=== PATIENT | female | born 1940 | race African-American/Black ===

== ENCOUNTER 2016-07-23 15:29 | Inpatient (IN) ==
[2016-07-23] MEDS ORDERED: ONDANSETRON 4 MG/2 ML VIAL IV STA (17:01)
[2016-07-23] MEDS ORDERED: SODIUM CHLORIDE 0.9% 500 ML IV STA (17:01)
[2016-07-23] MEDS ORDERED: PANTOPRAZOLE 40 MG VIAL IV STA (17:01)
[2016-07-23] MEDS ORDERED: ALUM/MAG/SIMETH/LIDO VISC 1:1 30 ML BOTTLE PO STA (17:01)
[2016-07-23 17:24] LABS: Basophils # 0.1 10*3/uL (0.0-0.2); Basophils % 0.8 % (0.0-0.8); Eosinophils # 0.1 10*3/uL (0.0-0.87); Eosinophils % 1.6 % (0.00-10.9); Hematocrit 33.5 VOL% (35.7-47.0); Hemoglobin 11.4 GM/DL (12.0-16.0); Immature Granulocytes % 0.4 %; Immature Granulocytes Absolute 0.03 #; Lymphocytes # 2.5 10*3/uL (1.4-4.0); Lymphocytes % 33.7 % (21.3-54.2); Mean Corpuscular Hemoglobin 31 PG (27-34); Mean Corpuscular Volume 90.8 FL (87-102); Mean Platelet Volume 8.8 FL (9.6-12.0); Monocytes # 0.6 10*3/uL (0.11-0.8); Monocytes % 8.6 % (1.7-12.7); Neutrophils # 4.1 10*3/uL (1.4-7.4); Neutrophils % 54.9 % (38.7-73.9); Platelet Count 336 T/CUMM (130-400); Red Blood Count 3.69 MC/CUMM (3.8-5.5); Red Cell Distribution Width 11.8 % (9.3-17.3); White Blood Count 7.4 T/CUMM (4-12)
--- NOTE | 2016-07-23 17:28 | Emergency Department Note ---
Hermelindo Munguia Brittany, am scribing for, and in the presence of, Mumtaz Jay MD 17:06. Misty Munguia Charles R, MD, personally performed the services described in this documentation, ascribed by Sandra Casraez in my presence, and it is both accurate and complete 728 . Arrival - Arrival Chief Complaint: Abdominal / Flank Pain Stated Complaint: bad upper stomach pain ED Nursing Triage Note: Abd pain, difficulty breathing starting this morning. Pt states she was seen here in ER a couple nights ago but after taking the RX she has not felt good. Mode of Arrival: Ambulatory Limitations: No Limitations Source: Patient, Old Records Reviewed, RN Notes Reviewed Time Seen by Provider: 07/23/16 16:52 - History of Present Illness HPI Narrative: Patient is a 75 y/o black female presenting to the ED with c/o epigastric abdominal pain with an onset of a few days ago. Patient reports having some dsysphagia upon eating, and soon after has nausea, and vomits. She states, "feels like the food is stuck." Patient states that today she vomited x1 and yesterday she vomited x3. Patient reports that episodes always occur after eating. Patient denies any constipation. Patient was seen here in the ED on July 21, 2015 and was diagnosed with GERD. From patient's appearance and history of current symptoms, it appears that her dysphagia most likely is a result of an esophageal stricture. Patient has a past medical history significant for IDDM, Arthritis, and HTN. No other complaint/pain. Allergies/Adverse Reactions: Allergies Allergy/AdvReac Type Severity Reaction Status Date / Time No Known Allergies Allergy Verified 07/23/16 15:33 Home Medications: Home Medications Medication Instructions Recorded Confirmed Type Donepezil [Aricept] 10 mg PO BEDTIME 07/21/16 07/21/16 History Enalapril Maleate 5 mg PO DAILY 07/21/16 07/21/16 History Escitalopram Oxalate 20 mg PO DAILY 07/21/16 07/21/16 History Famotidine Tab [Pepcid Tab] 20 mg PO DAILY #20 tablet 07/21/16 Rx Fluticasone 110 Mcg Inhaler 2 puff INH BID 07/21/16 07/21/16 History [Flovent 110 mcg Inhaler] Methocarbamol Tab [Robaxin Tab] 750 mg PO TID PRN 07/21/16 07/21/16 History NIFEdipine XL TAB [Procardia Xl] 60 mg PO DAILY 07/21/16 07/21/16 History Simvastatin [Zocor] 20 mg PO QPM 07/21/16 07/21/16 History glyBURIDE [Glyburide] 5 mg PO AC BREAKFAST 07/21/16 07/21/16 History hydroCHLOROthiazide 25 mg PO DAILY 07/21/16 07/21/16 History [Hydrochlorothiazide] metFORMIN [Glucophage] 1,000 mg PO BID 07/21/16 07/21/16 History Review of System - Review of System 12 point system: reviewed and no additional remarkable complaints except as stated - Review of System Constitutional: Present: other (dysphagia) Gastrointestinal: Present: abdominal pain, nausea, vomiting Medical,Surgical,& Family Hx - Medical History Cardio: History of: Hypertension Endocrine: History of: Diabetes Mellitus (NIDDM), Dyslipidemia - Surgical History Reproductive Surgeries: Surgical HX of;: Hysterectomy - Social History Smoking Status: Never smoker Frequency of Alcohol Use: None Type of Drug Use: None Exam Vital Signs: Vital Signs Temperature 98.9 F 07/23/16 15:33 Pulse Rate 63 07/23/16 18:45 Respiratory Rate 20 07/23/16 18:45 Blood Pressure 127/72 07/23/16 18:45 O2 Sat by Pulse Oximetry 100 07/23/16 18:45 - General General appearance: alert, in no apparent distress - Head Head exam: Present: atraumatic, normocephalic - Eye Eye exam: Present: normal appearance, PERRL, EOMI - ENT ENT exam: Present: normal oropharynx, mucous membranes moist, TM's normal bilaterally - Neck Neck exam: Present: normal inspection, full ROM, trachea midline - Chest Chest inspection: Present: normal inspection, symmetric chest wall rise - Respiratory Respiratory exam: Present: normal lung sounds bilaterally. Absent: rales, rhonchi, wheezes - Cardiovascular Cardiovascular exam: Present: regular rate, normal rhythm, normal heart sounds. Absent: murmur, rubs, gallop - Abdominal Exam Abdominal exam: Present: soft, tenderness (RUQ), normal bowel sounds. Absent: distention, guarding, rebound, Gee's sign - Extremities Exam Extremities exam: Present: normal inspection, full ROM - Back Exam Back exam: Present: normal inspection, full ROM - Neurological Exam Neurological exam: Present: alert, oriented X3, CN II-XII intact. Absent: motor sensory deficit - Psychiatric Psychiatric exam: Present: normal affect, normal mood - Skin Skin exam: Present: warm, dry Course - Consultations Consultation #1: Dr. Starr will admit patient Time: 19:14 Results - Labs CBC & BMP: 07/23/16 17:19 07/23/16 17:19 Lab Results: I have reviewed the patients labs Labs: Laboratory Tests 07/23/16 17:19 WBC 7.4 RBC 3.69 L Hgb 11.4 L Hct 33.5 L MCV 90.8 MCH 31 MCHC 34.0 RDW 11.8 Plt Count 336 MPV 8.8 L Neut % (Auto) 54.9 Lymph % (Auto) 33.7 Nolan % (Auto) 8.6 Eos % (Auto) 1.6 Baso % (Auto) 0.8 Neut # (Auto) 4.1 Lymph # (Auto) 2.5 Nolan # (Auto) 0.6 Eos # (Auto) 0.1 Baso # (Auto) 0.1 Immature Gran % 0.4 Nucleated RBC % 0.0 Immature Gran # 0.03 Nucleated RBCs # 0.00 Laboratory Tests 07/23/16 07/23/16 17:19 17:19 Sodium 137 Potassium 3.1 L Chloride 101 Carbon Dioxide 23 Anion Gap 16.1 H BUN 14 Creatinine 1.50 H GFR Calculation 38 BUN/Creatinine Ratio 9.00 Glucose 73 L Calculated Osmolality 272.8 L Calcium 9.1 Magnesium 2.2 Total Bilirubin < 0.39 AST 20 ALT 22 Alkaline Phosphatase 59 Troponin I < 0.015 Total Protein 7.7 Albumin 3.5 Globulin 4.2 H Albumin/Globulin Ratio 0.8 L Amylase 230 H Lipase 2564.0 H Urine Color Straw Urine Appearance Clear Urine pH 9.0 H Ur Specific [place] 1.003 Urine Protein Negative Urine Glucose (UA) Negative Urine Ketones Negative Urine Blood Negative Urine Nitrate Negative Urine Bilirubin Negative Urine Urobilinogen < 2.0 H Urine Leukocytes Negative Urine RBC 1 Urine WBC <1 Ur Squamous Epith Cells Occasional - Diagnostic Findings Procedure: Ultrasound: report reviewed by me (gallbladder: 3 mm gallbladder polyp versus adherent stone. No sonographic findings of acute cholecystitis. Follow-up gallbladder ultrasound could be obtained in 6 months to ensure stability. No other acute abnormality within the right upper quadrant. ) Disposition Clinical Impression: GERD (gastroesophageal reflux disease), Abdominal pain, Colic, biliary, Pancreatitis Case discussed with: patient, patient's family Disposition: Still a Patient Condition: Stable Time of Disposition: 19:23
[2016-07-23] MEDS ORDERED: ALUM/MAG/SIMETH/LIDO VISC 1:1 30 ML BOTTLE PO ONE (17:34)
[2016-07-23] MEDS ORDERED: ONDANSETRON 4 MG/2 ML VIAL ONE (17:34)
[2016-07-23] MEDS ORDERED: PANTOPRAZOLE 40 MG VIAL IV ONE (17:34)
[2016-07-23 17:43] LABS: Apearance,Urine CLEAR (Clear); Bilirubin,Urine Negative (Negative); Blood, Urine Negative (Negative); Glucose,Urine (UA) Negative (Negative); Ketones,Urine Negative (Negative); Nitrite,Urine Negative (Negative); Protein,Urine Negative; RBC,Urine 1 /HPF (0-4); Squamous Epithelial Cell,Urine Occasional /HPF (0-10); Urine Color Straw (Yellow); Urine Specific Gravity 1.003 (1.001-1.035); Urine Urobilinogen < 2.0 EU/DL (0.2-1.0); WBC,Urine <1 /HPF (0-6)
[2016-07-23 17:53] LABS: Alanine Aminotransferase 22 U/L (13-56); Albumin 3.5 G/DL (3.4-5.0); Alkaline Phosphatase 59 U/L (45-117); Amylase 230 U/L (25-115); Aspartate Amino Transferase 20 U/L (0-37); Bilirubin,Total < 0.39 MG/DL (0.2-1.0); Blood Urea Nitrogen 14 MG/DL (7-18); Calcium 9.1 MG/DL (8.5-10.1); Glucose 73 MG/DL (74-106); Magnesium 2.2 MG/DL (1.8-2.4); Osmolality,Calculated 272.8 MOS/KG (273-304); Potassium 3.1 MMOL/L (3.5-5.1); Sodium 137 MMOL/L (136-145); Total Protein 7.7 G/DL (6.4-8.3); Troponin I Only < 0.015 NG/ML (0.00-0.045)
--- NOTE | 2016-07-23 17:58 | EKG Report ---
Stationary ECG Study [facility] ER Test Date: 07/23/2016 5:56:52 PM Pat Name: TORRES BOOTH Department: Room: Gender: F Telemarketing Representative: MORALES : 1940 Requested by: Mumtaz Snadra Order Number: [id number] Reading MD: SHAZIA MCARTHUR Intervals [place] Rate: 67 P: 55 SC: 146 QRS: -37 QRSD: 94 T: 60 QT: 400 QTc: 415 Interpretive Statements SINUS RHYTHM MARKED LEFT AXIS DEVIATION MODERATE T-WAVE ABNORMALITY, CONSIDER ANTERIOR ISCHEMIA Electronically Signed On 07-23-16 23:30:13 SWAHILI TEACHER by SHAZIA MCARTHUR [email or web address]
--- NOTE | 2016-07-23 18:45 | Ultrasound Report ---
US gallbladder Indication: Right upper quadrant abdominal pain. Comparison: None available. Technique: Multiple longitudinal and transverse real-time sonographic images of the right upper quadrant of the abdomen are obtained. Findings: The liver measures 16 cm cm and demonstrates normal echogenicity without focal abnormality. The gallbladder is normal in size. There is a single punctate echogenic nodule within the gallbladder which is nonmobile and may represent adherent stone or polyp. There is no pericholecystic fluid or wall thickening. The sonographic Gee's sign is negative. The common duct measures 0.3 cm in diameter and there is no evidence of intrahepatic ductal dilation. Visualized portion the pancreas appears normal. Right kidney measures 8.9 x 3.8 x 3.1 cm with no hydronephrosis or perinephric collection visualized IMPRESSION: 3 mm gallbladder polyp versus adherent stone. No sonographic findings of acute cholecystitis. Follow-up gallbladder ultrasound could be obtained in 6 months to ensure stability. No other acute abnormality within the right upper quadrant. Ultrasound images were captured and stored. PROCEDURE INTERPRETED AT [facility] DEPARTMENT OF RADIOLOGY Final Report Signed by: Arthur Andrade
[2016-07-23] MEDS ORDERED: POTASSIUM CHLORIDE 20 MEQ TABLET PO STA (19:12)
--- NOTE | 2016-07-23 19:18 | XRay Report ---
Exam: XR chest 1V portable Indication: Abdominal pain Comparison study: 07/21/2016 Findings: The heart, mediastinum and bony structures are stable from prior. There is no focal consolidation, pneumothorax or pleural effusion identified. Impression: No acute cardiopulmonary process. No significant change from prior. PROCEDURE INTERPRETED AT [facility] DEPARTMENT OF RADIOLOGY Final Report Signed by: Arthur Andrade
--- NOTE | 2016-07-23 19:19 | XRay Report ---
XR abdomen 2V Clinical Information: Abdominal Pain Comparison: None Findings: Bowel gas pattern is nonspecific and within normal limits. No abnormally dilated small bowel loops are identified to suggest obstruction. There is no free air identified. Scattered fecal material is noted throughout colon, which is otherwise nondilated. No abnormal focal soft tissue masses or calcific densities are identified in the abdomen or pelvis. Lung bases appear predominantly clear. There is no acute osseous abnormality. No suspicious osseous lesions are identified. Impression: No acute radiographic abnormality in the abdomen. A mild-moderate degree of fecal stasis/constipation is suspected. PROCEDURE INTERPRETED AT [facility] DEPARTMENT OF RADIOLOGY Final Report Signed by: Arthur Andrade
[2016-07-23] MEDS ORDERED: POTASSIUM CHLORIDE 20 MEQ TABLET PO ONE (19:24)
[2016-07-23] MEDS ORDERED: DEXTROSE 50% 25 GM/50 ML VIAL IV PRN (21:40)
[2016-07-23] MEDS ORDERED: ACETAMINOPHEN 325 MG TABLET PO PRN (21:40)
[2016-07-23] MEDS ORDERED: HYDROmorphone 2 MG/1 ML VIAL IV PRN (21:40)
[2016-07-23] MEDS ORDERED: ONDANSETRON 4 MG/2 ML VIAL IV PRN (21:40)
[2016-07-23] MEDS ORDERED: GLUCAGON 1 MG VIAL IM PRN (21:40)
[2016-07-23] MEDS: SODIUM CHLORIDE 0.9% 1,000 ML IV SCH (22:25)
[2016-07-23] MEDS: INSULIN REGULAR 100 UNIT/ML SUBCUT SCH (22:42)
[2016-07-24] MEDS ORDERED: METHOCARBAMOL 750 MG TABLET PO PRN (07:24)
[2016-07-24 07:54] LABS: Basophils % 0.8 % (0.0-0.8); Eosinophils # 0.2 10*3/uL (0.0-0.87); Eosinophils % 3.2 % (0.00-10.9); Hematocrit 31.9 VOL% (35.7-47.0); Hemoglobin 10.5 GM/DL (12.0-16.0); Immature Granulocytes % 0.4 %; Immature Granulocytes Absolute 0.02 #; Lymphocytes # 1.8 10*3/uL (1.4-4.0); Lymphocytes % 33.3 % (21.3-54.2); Mean Corpuscular HGB Conc 32.9 GM/DL (32-36); Mean Corpuscular Hemoglobin 31 PG (27-34); Mean Corpuscular Volume 93.3 FL (87-102); Mean Platelet Volume 8.7 FL (9.6-12.0); Monocytes # 0.4 10*3/uL (0.11-0.8); Monocytes % 8.3 % (1.7-12.7); Neutrophils # 2.9 10*3/uL (1.4-7.4); Platelet Count 295 T/CUMM (130-400); Red Blood Count 3.42 MC/CUMM (3.8-5.5); Red Cell Distribution Width 11.9 % (9.3-17.3); White Blood Count 5.3 T/CUMM (4-12)
[2016-07-24 08:28] LABS: Alanine Aminotransferase 18 U/L (13-56); Albumin 3.1 G/DL (3.4-5.0); Alkaline Phosphatase 55 U/L (45-117); Amylase 112 U/L (25-115); Aspartate Amino Transferase 16 U/L (0-37); Bilirubin,Total < 0.39 MG/DL (0.2-1.0); Blood Urea Nitrogen 13 MG/DL (7-18); Calcium 8.7 MG/DL (8.5-10.1); Glucose 121 MG/DL (74-106); Magnesium 2.2 MG/DL (1.8-2.4); Potassium 4.3 MMOL/L (3.5-5.1); Sodium 143 MMOL/L (136-145); Total Protein 6.6 G/DL (6.4-8.3)
[2016-07-24] MEDS: INSULIN REGULAR 100 UNIT/ML SUBCUT SCH ×4 (08:40→23:07)
[2016-07-24] MEDS: FLUTICASONE 110 MCG/PUFF INHALER 12 GM INH SCH ×2 (09:51→23:30)
[2016-07-24] MEDS: PANTOPRAZOLE 40 MG VIAL IV SCH (09:51)
[2016-07-24] MEDS: ESCITALOPRAM 10 MG TABLET PO SCH (09:51)
[2016-07-24] MEDS: hydroCHLOROthiazide 25 MG TABLET PO SCH (09:52)
[2016-07-24] MEDS: FAMOTIDINE 20 MG TABLET PO SCH (09:56)
[2016-07-24] MEDS: ENALAPRIL 10 MG TABLET PO SCH (09:56)
[2016-07-24] MEDS ORDERED: PROPOFOL 500 MG/50 ML BOTTLE IV ONE (12:09)
[2016-07-24] MEDS ORDERED: LIDOCAINE 2% 5 ML VIAL ONE (12:09)
[2016-07-24] MEDS ORDERED: ROCURONIUM 100 MG/10 ML VIAL IV ONE (12:09)
[2016-07-24] MEDS ORDERED: ONDANSETRON 4 MG/2 ML VIAL ONE (12:09)
[2016-07-24] MEDS ORDERED: PHENYLEPHRINE 1 MG/10 ML SYRINGE IV ONE (12:09)
[2016-07-24] MEDS ORDERED: PROPOFOL 200 MG/20 ML VIAL IV ONE (12:09)
[2016-07-24] MEDS ORDERED: LIDOCAINE 1%/EPI INJ 20 ML VIAL ONE (14:21)
[2016-07-24] MEDS ORDERED: TISSUE ADHESIVE 1 EACH APPLICATOR TOP ONE ×2 (15:17→18:45)
--- NOTE | 2016-07-24 16:58 | General Surg History&Physical ---
Assessment and Plan (1) Pancreatitis Status: Acute Assessment and plan: This patient appears to have biliary pancreatitis. Her pain is significantly better this morning when I saw her and her lipase trended down to almost normal. I recommended laparoscopic cholecystectomy with intraoperative cholangiogram for biliary pancreatitis to the patient. I have discussed the risks, benefits, and alternatives of the operation with the patient, and the expected outcomes have been reviewed. We will proceed with operation. Current Visit: Yes History of Present Illness Chief complaint: Abdominal pain History of present illness: Ms. Dasilva is a 75 year old female who is admitted to my service through the ER for abdominal pain with elevated lipase and stones on ultrasound of the gallbladder. This note reflects an encounter I had with the patient at 0530 on 07/24/2016. Patient reports several day history of worsening abdominal pain with postprandial nausea and vomiting and pain radiating through to the back. She was worked up in the ER and found to have a lipase of over 2000 and a gallbladder ultrasound showed stones in the gallbladder with no biliary ductal dilation. Home Medications Medication Instructions Recorded Confirmed Type Donepezil [Aricept] 10 mg PO BEDTIME 07/21/16 07/24/16 History Enalapril Maleate 5 mg PO DAILY 07/21/16 07/24/16 History Escitalopram Oxalate 20 mg PO DAILY 07/21/16 07/24/16 History Famotidine Tab [Pepcid Tab] 20 mg PO DAILY #20 tablet 07/21/16 07/24/16 Rx Fluticasone 110 Mcg Inhaler 2 puff INH BID 07/21/16 07/24/16 History [Flovent 110 mcg Inhaler] Methocarbamol Tab [Robaxin Tab] 750 mg PO TID PRN 07/21/16 07/24/16 History NIFEdipine XL TAB [Procardia Xl] 60 mg PO DAILY 07/21/16 07/24/16 History Simvastatin [Zocor] 20 mg PO QPM 07/21/16 07/24/16 History glyBURIDE [Glyburide] 5 mg PO AC BREAKFAST 07/21/16 07/24/16 History hydroCHLOROthiazide 25 mg PO DAILY 07/21/16 07/24/16 History [Hydrochlorothiazide] metFORMIN [Glucophage] 1,000 mg PO BID 07/21/16 07/24/16 History Allergies Allergy/AdvReac Type Severity Reaction Status Date / Time No Known Allergies Allergy Verified 07/23/16 15:33 Medical,Surgical,& Family Hx - Medical History Cardio: History of: Hypertension Neurology: History of: Dementia Endocrine: History of: Diabetes Mellitus (NIDDM), Dyslipidemia Gastrointestinal: History of: GI Problems (abd pain) Musculoskeletal: History of: Musculoskeletal Problems (arthritis) No history of: Amputation - Surgical History Cardiac Surgeries: Patient Denies: Cardiac Catheterization Thoracic Surgeries: Patient denies;: Lobectomy Neurologic Surgeries: Patient denies: Neurologic Surgery Abdominal Surgeries: Patient denies: Abdominal Surgery Reproductive Surgeries: Surgical HX of;: Gynecologic Surgery, Hysterectomy - Family History Family History: Reports;: Family Cancer (mom breast cancer dad colon cancer) - Social History Smoking Status: Never smoker Frequency of Alcohol Use: None Type of Drug Use: None Exam - Constitutional Vitals: Period Temp Pulse Resp BP Sys/Cortez Pulse Ox Last 24 Hr 98.1 F-98.6 F 61-79 18-27 99-149/44-65 97-100 General appearance: normal weight, no acute distress - Head Head exam: Present: normal inspection, normocephalic - Eye Eye exam: Present: EOMI Pupils: Present: KELLY - ENT ENT exam: Present: normal exam Mouth exam: Present: normal external inspection, normal voice - Neck Neck exam: Present: normal inspection, trachea midline - Respiratory Respiratory exam: Present: clear to auscultation bilaterally. Absent: accessory muscle use, chest wall tenderness - Cardiovascular Cardiovascular exam: Present: RRR. Absent: systolic murmur, tachycardia - GI/Abdominal GI/Abdominal exam: Present: normal bowel sounds, tenderness (The patient has right upper quadrant and midepigastric tenderness on exam), soft. Absent: distended, Gee's sign - Extremities Exam Extremities exam: Present: normal inspection, normal capillary refill - Neurological Exam Neurological exam: Present: alert, oriented X3 Speech: Present: normal - Skin Skin exam: Present: normal color, warm - Constitutional Constitutional: Present: as per HPI - EENT Nose, mouth and throat: Present: as per HPI - Cardiovascular Cardiovascular: Present: as per HPI - Respiratory Respiratory: Present: as per HPI - Gastrointestinal Gastrointestinal: Present: as per HPI - Genitourinary Genitourinary: Present: as per HPI - Musculoskeletal Musculoskeletal: Present: as per HPI - Neurological Neurological: Present: as per HPI - Endocrine Endocrine: Present: as per HPI Hematologic/Lymphatic: Present: as per HPI Results - Labs CBC & BMP: 07/24/16 07:42 07/24/16 07:42
[2016-07-24] MEDS ORDERED: ONDANSETRON 4 MG/2 ML VIAL IV PRN (17:20)
[2016-07-24] MEDS ORDERED: HYDROmorphone 2 MG/1 ML VIAL IV PRN (17:20)
--- NOTE | 2016-07-24 18:41 | Fluoroscopy Report ---
Referring Physician: Sanjay Starr Exam: [place] cholangiogram in surgery Date: July 24, 2016 Reason: Gallstones Comparison: Gallbladder ultrasound July 23, 2016 Findings: Fluoroscopic images of the abdomen were provided after performance of an intraoperative cholangiogram. Fluoroscopy time was 58 seconds. The obtained images demonstrate normal caliber intrahepatic and extrahepatic bile ducts. There is a small filling defect within the common bile duct which could represent an air bubble or small stone. Please correlate with surgical findings. Impression: There is a small filling defect within the common bile duct which could represent a small air bubble or stone. Please correlate with surgical findings. PROCEDURE INTERPRETED AT [facility] DEPARTMENT OF RADIOLOGY Final Report Signed by: Dr. Catarina Malave
--- NOTE | 2016-07-24 18:55 | Operative Note ---
Date of procedure: 07/24/16 Pre-op diagnosis: Biliary pancreatitis Post-op diagnosis: same Procedure: Preoperative diagnosis Biliary pancreatitis Postoperative diagnosis Same Procedures performed 1. Laparoscopic cholecystectomy with intraoperative cholangiogram 2. Laparoscopic lysis of adhesions 22 modifier Findings Acute and chronic cholecystitis was seen. The critical view of safety was obtained prior to placing clips on the cystic duct and cystic artery. Intraoperative cholangiogram revealed no filling defects and normal biliary anatomy with cystic duct cannulation. Extensive intra-abdominal adhesions required full laparoscopic lysis of adhesions and due to this the case took more than twice the usual length of time. Complications None apparent Specimen Gallbladder Anesthesia GETA Blood loss 5 mL Indications This patient was admitted to the hospital with biliary pancreatitis. Her pancreatitis resolved and I recommended taking her to the operating room for a laparoscopic cholecystectomy with a selective cholangiogram. The risks, benefits, and alternatives of the operation were discussed with the patient in detail, and the expected outcomes were reviewed. In particular, the risk of bowel injury, liver injury, bile duct leak and bile duct injury, as well as pancreatitis and retained or drop stones were discussed in detail. All the patient's questions were answered. She like to proceed with the operation. Description of procedure The patient was taken to the operating room and transferred to the operating table in the supine position. Pressure points were padded and SCDs were placed to bilateral lower extremities. General endotracheal anesthesia was administered. The abdomen was prepped chlorhexidine and draped sterilely. Preoperative antibiotics were administered, a timeout was performed. The abdomen was entered in a supraumbilical location of the Veress needle. The skin incision was made in the supraumbilical location with a 11 blade scalpel after local anesthetic was administered. Umbilical stalk was grasped with a penetrating towel clip. A Veress needle was used to enter the peritoneal cavity confirmed by double click technique. Aspiration was negative. Saline drop test confirmed intraperitoneal location. The abdomen was insufflated to 15 mmHg with an initial insufflation pressure of 1 mmHg. The Veress needle was removed and a 5 mm trocar was placed blindly. The towel clip was removed. Diagnostic laparoscopy was performed. There were extensive adhesions in this location and I could not see safely to place additional trochars. The CO2 was used to insufflate the abdomen was left in place and a mid epigastric 11 mm trocar was placed. This demonstrated no obvious evidence of trocar injury but there were adhesions between the omentum and the midline incision. Under direct visualization, 2 additional right subcostal trochars were placed and lysis of adhesions was performed. Once the lysis of adhesions was completed, it was evident that there is no evidence of Veress needle or trocar injury. The patient was placed in reverse Trendelenburg and left side rolled down position. The gallbladder was grasped at the fundus and infundibulum. The cystic plate peritoneum was dissected into the critical view of safety was obtained. The cystic duct was clipped and the cystic artery was clipped twice initially and once laterally and divided. Cystic ductotomy was then made a cholangiogram was performed revealing brisk flow into the duodenum with no filling defects and good visualization about the biliary system and the pancreatic duct. Cystic duct remnant cannulation was confirmed. The cholangiogram catheter was then removed and the cystic duct was clipped twice centrally. Laparoscopic scissors were used to complete the transection of the cystic duct at the cystic ductotomy site. The gallbladder was removed from the gallbladder fossa using hook electrocautery. The gallbladder was placed in a Endo Catch retrieval bag through the 11 mm trocar and removed through the trocar with no significant fascial extension of the incision. The gallbladder fossa was suction irrigated until the effluent was clear. The CO2 was released from the abdomen and the trochars were removed. The skin incisions were closed with 4-0 Monocryl subcuticular suture and sterile skin glue. The patient was awakened from anesthesia and transferred to recovery. Postoperative plan Monitor drain output and advance diet as tolerated Anesthesia: FAUSTINO local Surgeon / Physician: Sanjay Starr Estimated blood loss: minimal Specimens: other (gallbladder) Condition: stable Disposition: PACU Results - Labs CBC & BMP: 07/24/16 07:42 07/24/16 07:42 Discharge Plan - Discharge Medications No Action glyBURIDE [Glyburide] 5 mg PO AC BREAKFAST Simvastatin [Zocor] 20 mg PO QPM metFORMIN [Glucophage] 1,000 mg PO BID Escitalopram Oxalate 20 mg PO DAILY Donepezil [Aricept] 10 mg PO BEDTIME Methocarbamol Tab [Robaxin Tab] 750 mg PO TID PRN PRN Reason: Spasms Enalapril Maleate 5 mg PO DAILY Famotidine Tab [Pepcid Tab] 20 mg PO DAILY #20 tablet NIFEdipine XL TAB [Procardia Xl] 60 mg PO DAILY hydroCHLOROthiazide [Hydrochlorothiazide] 25 mg PO DAILY Fluticasone 110 Mcg Inhaler [Flovent 110 mcg Inhaler] 2 puff INH BID - Follow Up or Referral - Forms/Instructions
--- NOTE | 2016-07-24 19:04 | Anesthesia ---
Anesthesia Post OP - Post Ansesthetic Evaluation Patient seen in post op: Yes Resp: within normal limits CV: within normal limits Mental: within normal limits Temp: within normal limits [id number]-Bg-[id number]: within normal limits Nausea and Vomiting: within normal limits Pain: within normal limits
[2016-07-24] MEDS ORDERED: fentaNYL 100 MCG/2 ML VIAL ONE (19:07)
[2016-07-24] MEDS ORDERED: ePHEDrine 50 MG/ML AMP ONE (19:07)
[2016-07-24] MEDS ORDERED: SEVOFLURANE 1 UNIT/15 MINUTE INH ONE (19:08)
[2016-07-24] MEDS: DONEPEZIL 10 MG TABLET PO SCH (20:58)
[2016-07-24] MEDS: SIMVASTATIN 20 MG TABLET PO SCH (20:58)
[2016-07-24] MEDS: SODIUM CHLORIDE 0.9% 1,000 ML IV SCH (21:00)
[2016-07-25 04:28] LABS: Basophils % 0.3 % (0.0-0.8); Eosinophils % 0.1 % (0.00-10.9); Hematocrit 29.2 VOL% (35.7-47.0); Hemoglobin 9.4 GM/DL (12.0-16.0); Immature Granulocytes % 0.5 %; Immature Granulocytes Absolute 0.04 #; Lymphocytes # 0.9 10*3/uL (1.4-4.0); Lymphocytes % 11.8 % (21.3-54.2); Mean Corpuscular HGB Conc 32.2 GM/DL (32-36); Mean Corpuscular Hemoglobin 31 PG (27-34); Mean Corpuscular Volume 94.8 FL (87-102); Mean Platelet Volume 9.6 FL (9.6-12.0); Monocytes # 0.4 10*3/uL (0.11-0.8); Monocytes % 5.7 % (1.7-12.7); Neutrophils # 6.2 10*3/uL (1.4-7.4); Neutrophils % 81.6 % (38.7-73.9); Platelet Count 258 T/CUMM (130-400); Red Blood Count 3.08 MC/CUMM (3.8-5.5); White Blood Count 7.6 T/CUMM (4-12)
[2016-07-25 05:02] LABS: Albumin 2.7 G/DL (3.4-5.0); Bilirubin,Total 0.8 MG/DL (0.2-1.0); Osmolality,Calculated 285.1 MOS/KG (273-304); Potassium 4.1 MMOL/L (3.5-5.1); Total Protein 6.3 G/DL (6.4-8.3)
--- NOTE | 2016-07-25 08:54 | Discharge Summary ---
Hospital Course - Hospital Course Hospital Course: This patient was admitted with biliary pancreatitis. Her pancreatitis resolved and she was taken to the operating room for laparoscopic cholecystectomy. Intraoperative cholangiogram was negative. She did have extensive intra- abdominal adhesions and adhesiolysis was performed. She tolerated the procedure well and was feeling well the next day. She was normal vital signs and want to go home and tolerated her diet. Pain is well controlled. She was discharged home with follow-up in clinic in 2 weeks. Diagnosis - Discharge Diagnosis (1) Pancreatitis Status: Acute Discharge Plan - Discharge Data Disposition: Disch To Home/Self Care Condition at Discharge: Stable Discharge Diet: advance to your usual diet Activity: no lifting Hygiene: may shower Weight Bearing at Discharge: full weight bearing Driving: not until seen by doctor Contact your physician if you experience:: fever over 101, Difficulty voiding, Redness or swelling, Nausea/Vomiting, Shortness of breath, Bleeding, pain uncontrolled by pain medications - Discharge Medications New HYDROcodone/ACETAMIN 7.5-325 [[place] 7.5-325] 1 tablet PO Q4H PRN #45 tablet PRN Reason: Pain Moderate (4-7) Continue glyBURIDE [Glyburide] 5 mg PO AC BREAKFAST Simvastatin [Zocor] 20 mg PO QPM metFORMIN [Glucophage] 1,000 mg PO BID Escitalopram Oxalate 20 mg PO DAILY Donepezil [Aricept] 10 mg PO BEDTIME Methocarbamol Tab [Robaxin Tab] 750 mg PO TID PRN PRN Reason: Spasms Enalapril Maleate 5 mg PO DAILY Famotidine Tab [Pepcid Tab] 20 mg PO DAILY #20 tablet NIFEdipine XL TAB [Procardia Xl] 60 mg PO DAILY hydroCHLOROthiazide [Hydrochlorothiazide] 25 mg PO DAILY Fluticasone 110 Mcg Inhaler [Flovent 110 mcg Inhaler] 2 puff INH BID - Follow Up or Referral Follow Up: Sanjay Starr MD [Physician] - 2 Weeks - Forms/Instructions Exam - Constitutional Vitals: Period Temp Pulse Resp BP Sys/[place] Pulse Ox Last 24 Hr 97.5 F-98.7 F 65-108 12-24 100-125/47-94 94-100 General appearance: normal weight, no acute distress - Head Head exam: Present: normal inspection, normocephalic - Eye Eye exam: Present: EOMI Pupils: Present: KELLY - ENT ENT exam: Present: normal exam - Neck Neck exam: Present: normal inspection - Respiratory Respiratory exam: Present: clear to auscultation bilaterally. Absent: accessory muscle use, chest wall tenderness - Cardiovascular Cardiovascular exam: Present: regular rate and rhythm. Absent: systolic murmur , tachycardia - GI/Abdominal GI/Abdominal exam: Present: normal bowel sounds, soft, other (incisions clean/ dry/intact). Absent: tenderness, rebound - Extremities Exam Extremities exam: Present: normal inspection, normal capillary refill - Back Exam Back exam: Present: normal inspection - Neurological Exam Neurological exam: Present: alert, oriented X3 - Psychiatric Psychiatric exam: Present: normal affect, normal mood - Skin Skin exam: Present: normal color, warm Discharge Results Labs on day of discharge: Labs from last 24 hours 07/25/16 07/25/16 07/25/16 07:22 03:46 03:46 WBC 7.6 D RBC 3.08 L Hgb 9.4 L Hct 29.2 L MCV 94.8 MCH 31 MCHC 32.2 RDW 12.0 Plt Count 258 MPV 9.6 Neut % (Auto) 81.6 H Lymph % (Auto) 11.8 L [place] % (Auto) 5.7 Eos % (Auto) 0.1 Baso % (Auto) 0.3 Neut # (Auto) 6.2 Lymph # (Auto) 0.9 L [place] # (Auto) 0.4 Eos # (Auto) 0.0 Baso # (Auto) 0.0 Immature Gran % 0.5 Nucleated RBC % 0.0 Immature Gran # 0.04 Nucleated RBCs # 0.00 Sodium 142 Potassium 4.1 Chloride 112 H Carbon Dioxide 19 L Anion Gap 15.1 H BUN 12 Creatinine 1.40 H GFR Calculation 40 BUN/Creatinine Ratio 8.00 Glucose 160 H POC Glucose 165 H Calculated Osmolality 285.1 Calcium 8.0 L Total Bilirubin 0.80 AST 41 H ALT 30 Alkaline Phosphatase 49 Total Protein 6.3 L Albumin 2.7 L Globulin 3.6 H Albumin/Globulin Ratio 0.7 L Lipase 178.0 D 07/24/16 07/24/16 07/24/16 19:54 15:23 11:00 WBC RBC Hgb Hct MCV MCH MCHC RDW Plt Count MPV Neut % (Auto) Lymph % (Auto) [place] % (Auto) Eos % (Auto) Baso % (Auto) Neut # (Auto) Lymph # (Auto) [place] # (Auto) Eos # (Auto) Baso # (Auto) Immature Gran % Nucleated RBC % Immature Gran # Nucleated RBCs # Sodium Potassium Chloride Carbon Dioxide Anion Gap BUN Creatinine GFR Calculation BUN/Creatinine Ratio Glucose POC Glucose 132 H 80 110 H Calculated Osmolality Calcium Total Bilirubin AST ALT Alkaline Phosphatase Total Protein Albumin Globulin Albumin/Globulin Ratio Lipase DS: Provider Date of admission: 07/23/16 19:24 Primary care physician: . No PCP Attending physician on admission: Sanjay Starr MD Consults: 07/23/16 21:55 Consult to Pharmacy [CONS] Routine Reason for Pharmacy Consult: Adjust Meds Renal Funct 07/23/16 22:11 Consult to Pastoral Services [CONS] Routine Comment: Pastoral Screen: Request Damage Inside Adjuster Visit Pastoral Screen Source of Request: Patient Discharging clinician: Sanjay Starr MD Expected date of discharge: 07/25/16
--- NOTE | 2016-07-25 10:06 | EKG Report ---
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
[2016-07-25] MEDS ORDERED: LACTATED RINGERS 1,000 ML IV ONE (10:07)
[2016-07-25 10:20] LABS: Basophils % 0.3 % (0.0-0.8); Eosinophils % 0.3 % (0.00-10.9); Hematocrit 25.6 VOL% (35.7-47.0); Hemoglobin 8.5 GM/DL (12.0-16.0); Immature Granulocytes % 0.4 %; Immature Granulocytes Absolute 0.03 #; Lymphocytes # 1.5 10*3/uL (1.4-4.0); Lymphocytes % 19.8 % (21.3-54.2); Mean Corpuscular HGB Conc 33.2 GM/DL (32-36); Mean Corpuscular Hemoglobin 31 PG (27-34); Mean Corpuscular Volume 94.1 FL (87-102); Mean Platelet Volume 8.9 FL (9.6-12.0); Monocytes # 0.6 10*3/uL (0.11-0.8); Monocytes % 7.7 % (1.7-12.7); Neutrophils # 5.2 10*3/uL (1.4-7.4); Neutrophils % 71.5 % (38.7-73.9); Platelet Count 253 T/CUMM (130-400); Red Blood Count 2.72 MC/CUMM (3.8-5.5); Red Cell Distribution Width 12.2 % (9.3-17.3); White Blood Count 7.3 T/CUMM (4-12)
[2016-07-25 10:46] LABS: Albumin 2.5 G/DL (3.4-5.0); Bilirubin,Total 0.5 MG/DL (0.2-1.0); Calcium 7.2 MG/DL (8.5-10.1); Osmolality,Calculated 296.3 MOS/KG (273-304); Potassium 3.7 MMOL/L (3.5-5.1); Total Protein 5.5 G/DL (6.4-8.3); Troponin I Only < 0.015 NG/ML (0.00-0.045)
[2016-07-25] MEDS: INSULIN REGULAR 100 UNIT/ML SUBCUT SCH ×4 (11:21→21:53)
[2016-07-25] MEDS: hydroCHLOROthiazide 25 MG TABLET PO SCH (11:25)
[2016-07-25] MEDS: PANTOPRAZOLE 40 MG VIAL IV SCH (11:25)
[2016-07-25] MEDS: ENALAPRIL 10 MG TABLET PO SCH (11:26)
[2016-07-25] MEDS: FAMOTIDINE 20 MG TABLET PO SCH (11:32)
[2016-07-25] MEDS: FLUTICASONE 110 MCG/PUFF INHALER 12 GM INH SCH ×2 (11:32→21:53)
[2016-07-25] MEDS: ESCITALOPRAM 10 MG TABLET PO SCH (11:32)
--- NOTE | 2016-07-25 11:40 | XRay Report ---
Referring Physician: Sanjay Starr Exam: XR chest 1V portable Date: July 25, 2016 at 10:16 AM Reason: Chest pain Comparison: Chest one view portable July 23, 2016 Findings: The cardiac silhouette is normal in size. No focal consolidation, pneumothorax or pleural effusion is identified. No acute osseous process is seen. Impression: No acute cardiopulmonary process is identified. PROCEDURE INTERPRETED AT [facility] DEPARTMENT OF RADIOLOGY Final Report Signed by: Dr. Catarina Malave
[2016-07-25] MEDS ORDERED: SODIUM CHLORIDE 0.9% 250 ML IV PRN (12:12)
--- NOTE | 2016-07-25 13:27 | Event Note ---
This patient was initially scheduled to go home but she was found in the bed unresponsive by her family and a rapid response was called. She was on a remote monitor tech which captured a short run of bradycardia down in the 30s when she was hypotensive. After interviewing the patient and the family the patient was not coughing or using the restroom right before this happened. She was just laying down in bed and became unresponsive. Her workup revealed essentially a normal EKG and she had a normal troponin with a mild elevation in her CK-MB index. Her x-ray was unremarkable of her chest. Her repeat lab work did demonstrate a slight drop in her hemoglobin to 8.5 from 9.4 this morning. She responded to IV fluid bolus and monitoring and I discussed the event with Dr. Polanco because the patient actually came to the ER 2 days prior to this admission with chest pain that was thought to be reflux related. The patient is demented so some of her history is slightly unreliable. We will keep her here on remote telemetry and await any other recommendations from cardiology but the initial thought after talking with Dr. Polanco was that this may just be a vagal episode. I am also going to transfuse the patient 2 units of packed red blood cells because she does have a low bicarbonate in slight elevation of her creatinine and her hemoglobin is down to 8.5. In addition, she was hypotensive which could just be a vagal episode but could be a manifestation of her low blood counts. I do not think she is actively bleeding and would not recommend taking her back to the operating room at this time.
--- NOTE | 2016-07-25 18:54 | Cardiology Consult Note ---
Assessment and Plan (1) Bradycardia Status: Acute Current Visit: Yes (2) Hypotension Status: Acute Current Visit: Yes (3) Pancreatitis Status: Acute Current Visit: Yes (4) Hyperlipidemia Status: Chronic Current Visit: Yes (5) Diabetes mellitus Status: Chronic Current Visit: Yes History of Present Illness - Data of Consult Patient: new to practice Consult date: 07/25/16 Requesting Physician: Sanjay Starr - Consult Narrative Reason for consult: bradycardia History of present illness: I personally discussed this case with Dr. Starr. Ms. Dasilva is a 75 year old female without a prior cardiac history, risk factors significant for advanced age, hypertension, hyperlipidemia, diabetes mellitus. She was admitted to the hospital with pancreatitis secondary to gallstones and is now status post laparoscopic cholecystectomy. Earlier today she developed spontaneous bradycardia with associated hypertension, heart rate into the 30s with a systolic blood pressure in the 60s. Her niece is present upon my initial interview and was with the patient when this occurred. She was sitting up in her chair, was wide-awake, not expressing any pain, and not engaged in any activity such as laughing, coughing or straining for bowel movement. She seemed to "go back" with her eyes "rolled up in her head". Nursing was notified, her blood sugar was normal. Her symptoms resolved spontaneously. I have reviewed the rhythm strips and she had sinus bradycardia that degenerated into a junctional escape beat and eventually returned back to sinus rhythm spontaneously. Since that time, her rhythm has been normal and she 's been hemodynamics are stable. She denies any chest pain, shortness of breath , orthopnea. She denies any symptoms of presyncope or syncope prior to her admission here. She's never had an episode like this before. She is not on any rate limiting agents. She is mildly anemic and Dr. Starr is transfusing her. She has occasional arthralgias, has had some mild nausea and anorexia with her recent illness. She has had a bowel movement and is eating. The remainder of the 12 point review of systems is otherwise negative in detail. Impression and plan: 1. Bradycardia with associated hypotension-there does not appear to be any sort of vagal stimulus that was associated with this. This was a transient episode and so far has been self-limited. The significance of this is unknown. We will cycle her cardiac biomarkers, check an echocardiogram and transfer her to the telemetry floor. We will continue with telemetry remote monitoring. If she has no recurrences, we may need to consider 30 day event monitor at the time of discharge. I'm going to withhold her THEODORE inhibitor and practice some permissive height per tension so that if this recurs again it may be less profound (the hypotension). Further plan will depend on her clinical evolution. 2. Gallstone pancreatitis-she is now status post laparoscopic cholecystectomy. This is resolving. 3. Hypertension-has had been well-controlled and now she has a hypotensive episode. We will continue to monitor this. See discussion above. 4. Diabetes mellitus-chronic. Continue current management. 5. Hyperlipidemia-chronic, stable. CC: Sanjay Starr MD - Home Medications and Allergies Home Medications: Home Medications Medication Instructions Recorded Confirmed Type Donepezil [Aricept] 10 mg PO BEDTIME 07/21/16 07/24/16 History Enalapril Maleate 5 mg PO DAILY 07/21/16 07/24/16 History Escitalopram Oxalate 20 mg PO DAILY 07/21/16 07/24/16 History Famotidine Tab [Pepcid Tab] 20 mg PO DAILY #20 tablet 07/21/16 07/24/16 Rx Fluticasone 110 Mcg Inhaler 2 puff INH BID 07/21/16 07/24/16 History [Flovent 110 mcg Inhaler] Methocarbamol Tab [Robaxin Tab] 750 mg PO TID PRN 07/21/16 07/24/16 History NIFEdipine XL TAB [Procardia Xl] 60 mg PO DAILY 07/21/16 07/24/16 History Simvastatin [Zocor] 20 mg PO QPM 07/21/16 07/24/16 History glyBURIDE [Glyburide] 5 mg PO AC BREAKFAST 07/21/16 07/24/16 History hydroCHLOROthiazide 25 mg PO DAILY 07/21/16 07/24/16 History [Hydrochlorothiazide] metFORMIN [Glucophage] 1,000 mg PO BID 07/21/16 07/24/16 History HYDROcodone/ACETAMIN 7.5-325 1 tablet PO Q4H PRN #45 tablet 07/25/16 Rx [[place] 7.5-325] Allergies/Adverse Reactions: Allergies Allergy/AdvReac Type Severity Reaction Status Date / Time No Known Allergies Allergy Verified 07/23/16 15:33 12 point system: reviewed and no additional remarkable complaints except as stated Medical,Surgical,& Family Hx - Medical History Cardio: History of: Hypertension Neurology: History of: Dementia Endocrine: History of: Diabetes Mellitus (NIDDM), Dyslipidemia Gastrointestinal: History of: GI Problems (abd pain) Musculoskeletal: History of: Musculoskeletal Problems (arthritis) No history of: Amputation - Surgical History Cardiac Surgeries: Patient Denies: Cardiac Catheterization Thoracic Surgeries: Patient denies;: Lobectomy Neurologic Surgeries: Patient denies: Neurologic Surgery Abdominal Surgeries: Patient denies: Abdominal Surgery Reproductive Surgeries: Surgical HX of;: Gynecologic Surgery, Hysterectomy - Family History Family History: Reports;: Family Cancer (mom breast cancer dad colon cancer) - Social History Smoking Status: Never smoker Frequency of Alcohol Use: None Type of Drug Use: None Physical Examination Vital Signs Temp Pulse Resp BP Pulse Ox 98.9 F 83 18 120/55 98 07/23/16 15:33 07/23/16 15:33 07/23/16 15:33 07/23/16 15:33 07/23/16 15:33 Other: General appearance: normal weight, no acute distress - Head Head exam: Present: normal inspection, normocephalic, atraumatic. Absent: hematoma, laceration - Eye Eye exam: Present: EOMI. Absent: conjunctival injection, nystagmus, periorbital swelling, scleral icterus, laceration to eyelids Pupils: Present: PERRL. Absent: constricted, dilated, fixed, irregular, unequal - ENT ENT exam: Present: normal exam, normal external ear exam - Neck Neck exam: Present: normal inspection. Absent: lymphadenopathy, meningismus, tenderness, thyromegaly - Respiratory Respiratory exam: Present: clear to auscultation bilaterally. Absent: accessory muscle use, chest wall tenderness - Cardiovascular Cardiovascular exam: Present: regular rate and rhythm. Absent: carotid bruit, gallop, JVD, rubs - GI/Abdominal GI/Abdominal exam: Present: Mildly distended, postsurgical interval approximated without surrounding erythema, calor, bleeding. Bowel sounds are present. Absent: firm, guarding, hernia, mass, tenderness, rebound. - Extremities Exam Extremities exam: Present: Mildly decreased pulses in the bilateral lower extremities, normal capillary refill. Absent: calf tenderness, edema - Back Exam Back exam: Present: normal inspection. Absent: muscle spasm, vertebral tenderness - Neurological Exam Neurological exam: Present: alert, oriented X3, grossly intact without resting or intention tremor - Psychiatric Psychiatric exam: Present: normal affect, normal mood - Skin Skin exam: Present: normal color, warm, dry, intact. Absent: cyanosis, diaphoretic, rash, urticaria Result/EKG - Labs CBC & BMP: 07/25/16 10:11 07/25/16 10:11 Lab Results: I have reviewed the past 24 hour labs Labs: Laboratory Results - last 24 hr 07/24/16 07/25/16 07/25/16 19:54 03:46 03:46 WBC 7.6 D RBC 3.08 L Hgb 9.4 L Hct 29.2 L MCV 94.8 MCH 31 MCHC 32.2 RDW 12.0 Plt Count 258 MPV 9.6 Neut % (Auto) 81.6 H Lymph % (Auto) 11.8 L [place] % (Auto) 5.7 Eos % (Auto) 0.1 Baso % (Auto) 0.3 Neut # (Auto) 6.2 Lymph # (Auto) 0.9 L [place] # (Auto) 0.4 Eos # (Auto) 0.0 Baso # (Auto) 0.0 Immature Gran % 0.5 Nucleated RBC % 0.0 Immature Gran # 0.04 Nucleated RBCs # 0.00 Sodium 142 Potassium 4.1 Chloride 112 H Carbon Dioxide 19 L Anion Gap 15.1 H BUN 12 Creatinine 1.40 H GFR Calculation 40 BUN/Creatinine Ratio 8.00 Glucose 160 H POC Glucose 132 H Calculated Osmolality 285.1 Calcium 8.0 L Total Bilirubin 0.80 AST 41 H ALT 30 Alkaline Phosphatase 49 Total Creatine Kinase CK-MB (CK-2) Troponin I Total Protein 6.3 L Albumin 2.7 L Globulin 3.6 H Albumin/Globulin Ratio 0.7 L Lipase 178.0 D Blood Type Antibody Screen Crossmatch 07/25/16 07/25/16 07/25/16 07:22 09:54 10:00 WBC RBC Hgb Hct MCV MCH MCHC RDW Plt Count MPV Neut % (Auto) Lymph % (Auto) [place] % (Auto) Eos % (Auto) Baso % (Auto) Neut # (Auto) Lymph # (Auto) [place] # (Auto) Eos # (Auto) Baso # (Auto) Immature Gran % Nucleated RBC % Immature Gran # Nucleated RBCs # Sodium Potassium Chloride Carbon Dioxide Anion Gap BUN Creatinine GFR Calculation BUN/Creatinine Ratio Glucose POC Glucose 165 H 187 H Calculated Osmolality Calcium Total Bilirubin AST ALT Alkaline Phosphatase Total Creatine Kinase CK-MB (CK-2) Troponin I Total Protein Albumin Globulin Albumin/Globulin Ratio Lipase Blood Type AB NEGATIVE Antibody Screen Negative Crossmatch See Detail 07/25/16 07/25/16 07/25/16 10:11 10:11 10:11 WBC 7.3 RBC 2.72 L Hgb 8.5 L Hct 25.6 L MCV 94.1 MCH 31 MCHC 33.2 RDW 12.2 Plt Count 253 MPV 8.9 L Neut % (Auto) 71.5 Lymph % (Auto) 19.8 L [place] % (Auto) 7.7 Eos % (Auto) 0.3 Baso % (Auto) 0.3 Neut # (Auto) 5.2 Lymph # (Auto) 1.5 [place] # (Auto) 0.6 Eos # (Auto) 0.0 Baso # (Auto) 0.0 Immature Gran % 0.4 Nucleated RBC % 0.0 Immature Gran # 0.03 Nucleated RBCs # 0.00 Sodium 148 H Potassium 3.7 Chloride 118 H Carbon Dioxide 19 L Anion Gap 14.7 BUN 12 Creatinine 1.30 H GFR Calculation 44 BUN/Creatinine Ratio 9.00 Glucose 148 H POC Glucose Calculated Osmolality 296.3 Calcium 7.2 L Total Bilirubin 0.50 AST 34 ALT 28 Alkaline Phosphatase 45 Total Creatine Kinase 351 H D CK-MB (CK-2) 4.9 H Troponin I < 0.015 Total Protein 5.5 L Albumin 2.5 L Globulin 3.0 Albumin/Globulin Ratio 0.8 L Lipase Blood Type Antibody Screen Crossmatch 07/25/16 07/25/16 07/25/16 10:11 11:45 15:48 WBC RBC Hgb Hct MCV MCH MCHC RDW Plt Count MPV Neut % (Auto) Lymph % (Auto) [place] % (Auto) Eos % (Auto) Baso % (Auto) Neut # (Auto) Lymph # (Auto) [place] # (Auto) Eos # (Auto) Baso # (Auto) Immature Gran % Nucleated RBC % Immature Gran # Nucleated RBCs # Sodium Potassium Chloride Carbon Dioxide Anion Gap BUN Creatinine GFR Calculation BUN/Creatinine Ratio Glucose POC Glucose 199 H 142 H Calculated Osmolality Calcium Total Bilirubin AST ALT Alkaline Phosphatase Total Creatine Kinase CK-MB (CK-2) Troponin I Total Protein Albumin Globulin Albumin/Globulin Ratio Lipase 171.0 Blood Type Antibody Screen Crossmatch 07/25/16 Unknown WBC RBC Hgb Hct MCV MCH MCHC RDW Plt Count MPV Neut % (Auto) Lymph % (Auto) [place] % (Auto) Eos % (Auto) Baso % (Auto) Neut # (Auto) Lymph # (Auto) [place] # (Auto) Eos # (Auto) Baso # (Auto) Immature Gran % Nucleated RBC % Immature Gran # Nucleated RBCs # Sodium Potassium Chloride Carbon Dioxide Anion Gap BUN Creatinine GFR Calculation BUN/Creatinine Ratio Glucose POC Glucose Calculated Osmolality Calcium Total Bilirubin AST ALT Alkaline Phosphatase Total Creatine Kinase CK-MB (CK-2) Troponin I Total Protein Albumin Globulin Albumin/Globulin Ratio Lipase Blood Type AB NEGATIVE Antibody Screen Crossmatch - EKG EKG results: interpreted by me, sinus rhythm Specialty Discharge - Follow Up or Referrals Follow up with: Sanjay Starr MD [Physician] - 2 Weeks
[2016-07-25 19:20] LABS: Troponin I Only < 0.015 NG/ML (0.00-0.045)
[2016-07-25] MEDS: SIMVASTATIN 20 MG TABLET PO SCH (19:37)
[2016-07-25 21:01] LABS: Hematocrit 33.5 VOL% (35.7-47.0); Hemoglobin 11.2 GM/DL (12.0-16.0)
[2016-07-25] MEDS: DONEPEZIL 10 MG TABLET PO SCH (21:51)
[2016-07-26 01:50] LABS: Basophils % 0.3 % (0.0-0.8); Eosinophils # 0.1 10*3/uL (0.0-0.87); Hematocrit 32.4 VOL% (35.7-47.0); Hemoglobin 10.8 GM/DL (12.0-16.0); Immature Granulocytes % 0.2 %; Immature Granulocytes Absolute 0.02 #; Lymphocytes # 1.8 10*3/uL (1.4-4.0); Mean Corpuscular HGB Conc 33.3 GM/DL (32-36); Mean Corpuscular Hemoglobin 31 PG (27-34); Mean Corpuscular Volume 91.5 FL (87-102); Mean Platelet Volume 9.6 FL (9.6-12.0); Monocytes # 0.7 10*3/uL (0.11-0.8); Monocytes % 7.8 % (1.7-12.7); Neutrophils # 6.1 10*3/uL (1.4-7.4); Neutrophils % 69.7 % (38.7-73.9); Platelet Count 228 T/CUMM (130-400); Red Blood Count 3.54 MC/CUMM (3.8-5.5); Red Cell Distribution Width 12.9 % (9.3-17.3); White Blood Count 8.8 T/CUMM (4-12)
[2016-07-26 02:23] LABS: Osmolality,Calculated 293.3 MOS/KG (273-304)
[2016-07-26 02:29] LABS: Troponin I Only 0.017 NG/ML (0.00-0.045)
[2016-07-26 07:29] LABS: Troponin I Only 0.019 NG/ML (0.00-0.045)
[2016-07-26] MEDS: SODIUM CHLORIDE 0.9% 1,000 ML IV SCH (07:48)
[2016-07-26] MEDS: ESCITALOPRAM 10 MG TABLET PO SCH (09:47)
[2016-07-26] MEDS: FAMOTIDINE 20 MG TABLET PO SCH (09:47)
[2016-07-26] MEDS: PANTOPRAZOLE 40 MG VIAL IV SCH (09:47)
[2016-07-26] MEDS: hydroCHLOROthiazide 25 MG TABLET PO SCH (09:47)
[2016-07-26] MEDS: FLUTICASONE 110 MCG/PUFF INHALER 12 GM INH SCH (09:51)
[2016-07-26] MEDS: INSULIN REGULAR 100 UNIT/ML SUBCUT SCH (09:56)
--- NOTE | 2016-07-26 11:22 | Event Note ---
General Surgery Progress Note Chief complaint This patient is a 75-year-old woman admitted to the hospital with biliary pancreatitis and underwent laparoscopic cholecystectomy with intraoperative cholangiogram on 07/24/2016 complicated by postoperative bradycardic hypotensive episode on 07/25/2016 requiring transfer to the telemetry unit and monitoring Interval history The patient's blood counts dropped yesterday morning on her lab work so she was transfused and moved to telemetry. She is doing well right now and not having any problems to speak of. She did not have any further arrhythmias overnight. Her blood pressure is normal. She denies any orthostatic symptoms. She is tolerating her diet. Her abdomen is benign Physical exam Afebrile, normal vital signs Chest is clear Heart is regular Abdomen is soft and appropriately tender. Incisions are clean, dry, and intact. Labs Hemoglobin responded appropriately to transfusion. The initial hemoglobin was around 11 but this morning is around 10 which is the appropriate response to 2 units that she got yesterday Imaging None new Assessment and plan The patient responded appropriately to blood transfusion. Her hemoglobin dropped from the posttransfusion level but I think the posttransfusion levels hemoconcentrated based on how much it went up. No further hemoglobin checks are needed unless she changes clinically The patient is doing well from the standpoint of the surgical recovery and once she is cleared by cardiology I will discharge her home
[2016-07-26 13:19] LABS: Hematocrit 34.8 VOL% (35.7-47.0); Hemoglobin 11.3 GM/DL (12.0-16.0)
--- NOTE | 2016-07-26 13:42 | Cardiology Progress Note ---
Assessment and Plan (1) Bradycardia Status: Resolved Assessment and plan: This was an isolated and self-limited event. I believe she is stable for discharge from a cardiac standpoint. I would recommend placing a 30 day event monitor. She can pick this up from [facility] during the week, and follow-up with me in 6 weeks, after completion of this event monitoring. Current Visit: Yes (2) Hypotension Status: Resolved Current Visit: Yes (3) Pancreatitis Status: Resolved Current Visit: Yes (4) Hyperlipidemia Status: Chronic Current Visit: Yes (5) Diabetes mellitus Status: Chronic Current Visit: Yes Cardiology - PN: Subj Interval history: This patient does not have a history of coronary artery disease, although she is at intermediate risk. She was admitted to the hospital with gallstone pancreatitis and is now status post laparoscopic cholecystectomy. We will consulted postoperatively when the patient developed a period of bradycardia ( junctional rhythm in the 30s) and hypotension per the see systolic blood pressure 60s). The patient had a syncopal episode with this hemodynamic event, although was self-limited. The patient was transfused and her antihypertensive regimen was adjusted. She was transferred to telemetry. I have reviewed her telemetry, and there are no recurrent significant bradycardic events. She has not had any recurrent hypotension. Clinically she is feeling well would like to go home. Exam (Progress Note) - Constitutional Vitals: Period Temp Pulse Resp BP Sys/Cortez Pulse Ox Last 24 Hr 97 F-99.2 F 60-81 16-20 104-173/52-77 94-98 Exam: General appearance: normal weight, no acute distress - Head Head exam: Present: normal inspection, normocephalic, atraumatic. Absent: hematoma, laceration - Eye Eye exam: Present: EOMI. Absent: conjunctival injection, nystagmus, periorbital swelling, scleral icterus, laceration to eyelids Pupils: Present: PERRL. Absent: constricted, dilated, fixed, irregular, unequal - ENT ENT exam: Present: normal exam, normal external ear exam - Neck Neck exam: Present: normal inspection. Absent: lymphadenopathy, meningismus, tenderness, thyromegaly - Respiratory Respiratory exam: Present: clear to auscultation bilaterally. Absent: accessory muscle use, chest wall tenderness - Cardiovascular Cardiovascular exam: Present: regular rate and rhythm. Absent: carotid bruit, gallop, JVD, rubs - GI/Abdominal GI/Abdominal exam: Present: normal bowel sounds, soft, mildly distended with mild tenderness at the surgical wounds, surgical site wound edges are well approximated without erythema or calor. Absent: firm, guarding, hernia, mass, tenderness, rebound. - Extremities Exam Extremities exam: Present: normal inspection, normal capillary refill. Absent: calf tenderness, edema - Back Exam Back exam: Present: normal inspection. Absent: muscle spasm, vertebral tenderness - Neurological Exam Neurological exam: Present: alert, oriented X3, grossly intact without resting or intention tremor - Psychiatric Psychiatric exam: Present: normal affect, normal mood - Skin Skin exam: Present: normal color, warm, dry, intact. Absent: cyanosis, diaphoretic, rash, urticaria Result/EKG - Labs CBC & BMP: 07/26/16 13:13 07/26/16 00:33 Lab Results: I have reviewed the past 24 hour labs Labs: Laboratory Results - last 24 hr 07/25/16 07/25/16 07/25/16 10:00 15:48 18:39 WBC RBC Hgb Hct MCV MCH MCHC RDW Plt Count MPV Neut % (Auto) Lymph % (Auto) [place] % (Auto) Eos % (Auto) Baso % (Auto) Neut # (Auto) Lymph # (Auto) [place] # (Auto) Eos # (Auto) Baso # (Auto) Immature Gran % Nucleated RBC % Immature Gran # Nucleated RBCs # Sodium Potassium Chloride Carbon Dioxide Anion Gap BUN Creatinine GFR Calculation BUN/Creatinine Ratio Glucose POC Glucose 142 H Calculated Osmolality Calcium Magnesium Total Creatine Kinase CK-MB (CK-2) Troponin I TSH 3rd Generation 0.302 L Blood Type AB NEGATIVE Antibody Screen Negative Crossmatch See Detail 07/25/16 07/25/16 07/25/16 18:39 20:44 20:52 WBC RBC Hgb 11.2 L D Hct 33.5 L MCV MCH MCHC RDW Plt Count MPV Neut % (Auto) Lymph % (Auto) [place] % (Auto) Eos % (Auto) Baso % (Auto) Neut # (Auto) Lymph # (Auto) [place] # (Auto) Eos # (Auto) Baso # (Auto) Immature Gran % Nucleated RBC % Immature Gran # Nucleated RBCs # Sodium Potassium Chloride Carbon Dioxide Anion Gap BUN Creatinine GFR Calculation BUN/Creatinine Ratio Glucose POC Glucose 150 H Calculated Osmolality Calcium Magnesium Total Creatine Kinase 326 H CK-MB (CK-2) 3.5 Troponin I < 0.015 [facility] 3rd Generation Blood Type Antibody Screen Crossmatch 07/26/16 07/26/16 07/26/16 00:33 00:33 00:33 WBC 8.8 RBC 3.54 L D Hgb 10.8 L Hct 32.4 L MCV 91.5 MCH 31 MCHC 33.3 RDW 12.9 Plt Count 228 MPV 9.6 Neut % (Auto) 69.7 Lymph % (Auto) 21.0 L [place] % (Auto) 7.8 Eos % (Auto) 1.0 Baso % (Auto) 0.3 Neut # (Auto) 6.1 Lymph # (Auto) 1.8 [place] # (Auto) 0.7 Eos # (Auto) 0.1 Baso # (Auto) 0.0 Immature Gran % 0.2 Nucleated RBC % 0.0 Immature Gran # 0.02 Nucleated RBCs # 0.00 Sodium 148 H Potassium 4.0 Chloride 117 H Carbon Dioxide 21 Anion Gap 14.0 BUN 10 Creatinine 1.40 H GFR Calculation 40 BUN/Creatinine Ratio 7.00 Glucose 116 H POC Glucose Calculated Osmolality 293.3 Calcium 8.0 L Magnesium 2.0 Total Creatine Kinase 292 H CK-MB (CK-2) 2.9 Troponin I 0.017 [facility] 3rd Generation Blood Type Antibody Screen Crossmatch 07/26/16 07/26/16 07/26/16 06:39 08:09 11:58 WBC RBC Hgb Hct MCV MCH MCHC RDW Plt Count MPV Neut % (Auto) Lymph % (Auto) [place] % (Auto) Eos % (Auto) Baso % (Auto) Neut # (Auto) Lymph # (Auto) [place] # (Auto) Eos # (Auto) Baso # (Auto) Immature Gran % Nucleated RBC % Immature Gran # Nucleated RBCs # Sodium Potassium Chloride Carbon Dioxide Anion Gap BUN Creatinine GFR Calculation BUN/Creatinine Ratio Glucose POC Glucose 126 H 178 H Calculated Osmolality Calcium Magnesium Total Creatine Kinase 242 H CK-MB (CK-2) 2.5 Troponin I 0.019 [facility] 3rd Generation Blood Type Antibody Screen Crossmatch 07/26/16 13:13 WBC RBC Hgb 11.3 L Hct 34.8 L MCV MCH MCHC RDW Plt Count MPV Neut % (Auto) Lymph % (Auto) [place] % (Auto) Eos % (Auto) Baso % (Auto) Neut # (Auto) Lymph # (Auto) [place] # (Auto) Eos # (Auto) Baso # (Auto) Immature Gran % Nucleated RBC % Immature Gran # Nucleated RBCs # Sodium Potassium Chloride Carbon Dioxide Anion Gap BUN Creatinine GFR Calculation BUN/Creatinine Ratio Glucose POC Glucose Calculated Osmolality Calcium Magnesium Total Creatine Kinase CK-MB (CK-2) Troponin I TSH 3rd Generation Blood Type Antibody Screen Crossmatch - Impressions Impressions: Telemetry demonstrates sinus rhythm. Specialty Discharge - Follow Up or Referrals Follow up with: Sanjay Starr MD [Physician] - 2 Weeks Stephy Polanco MD [Physician] - (f/u 6 weeks superintendent storage area 30 day event monitor (please fax order to clinic or call tomorrow) from [facility] ([facility] [phone]))
[2016-07-26 16:40] VITALS: BP 133/64
--- NOTE | 2016-07-28 11:13 | Pathology Report from [facility] ---
ACCESSION # : [id number] PATIENT NAME : Mickie Booth ORDERING DR : Sanjay Starr MD CLINICAL HX: Cholecystitis POST-OP DX: Same SPECIMEN INFO: Gallbladder GROSS DESCRIPTION: The specimen is received in formalin in a bag labeled with the patient's name. It consists of a single 8.5 x 2.5 x 1.2 cm gallbladder with a greenish-sanchez serosal surface. The cystic duct is patent, and the gallbladder lumen is filled with viscous black bile. Stones are not identified , either within the lumen or separately within the bag. The gallbladder mucosa is flat, rough, and bile stained, with no focal lesions and no gross evidence of cholesterolosis. Case Supervisor sections submitted in a single cassette. DIAGNOSIS FOR MICKIE BOOTH: GALLBLADDER: Chronic cholecystitis. No evidence of malignancy. SERVICE DATE: 07/26/2016 REPORT DATE: 07/28/2016 PATHOLOGIST: Jocy Christianson III, M.D. MTDD
== END 2016-07-26 17:32 | disposition home or self-care (01) | DRG 419 ==
LOC: N.ED 15:29 → N.EDINP 19:24 → N.3E 21:17 → N.TELEN 07-25 20:41
PROVIDERS: ADMIT Surgery; ATTEND Surgery
PROC: LAPCHOL (2016-07-24 17:09)